=== PATIENT | female | born 1960 | race Caucasian/White ===

== ENCOUNTER 2018-10-12 09:06 | Emergency (ER) | payer BC ==
[2018-10-12 09:31] VITALS: BP 148/74
[2018-10-12] MEDS ORDERED: CHERRY SYRUP 10 ML UDC PO ONE (09:44)
[2018-10-12] MEDS ORDERED: IPRATROPIUM/ALBUTEROL 3 ML NEB INH STA (09:44)
[2018-10-12] MEDS ORDERED: DEXAMETHASONE 10 MG/ML VIAL PO STA (09:44)
--- NOTE | 2018-10-12 09:47 | ED Physician Documentation ---
PD HPI DYSPNEA - Stated complaint Stated Complaint: DIFFICULTY BREATHING/CONGESTION - Chief complaint Chief Complaint: General - History obtained from History obtained from: Patient, Family - History of Present Illness Timing - onset: How many weeks ago (1) Timing - onset during: Rest Timing - duration: Weeks (1) Timing - details: Gradual onset, Still present Inciting event(s): URI Improved by: Inhaler/neb, Steroids Worsened by: Exertion Associated symptoms: Cough, Wheezing, Chest pain / discomfort Similar symptoms before: Diagnosis (bronchitis) Recently seen: Clinic - Additional information Additional information: 58-year-old female has developed cough congestion and wheezing about 1 week ago she has been into see her doctor she started on some prednisone and Cefdinir and she continues to have wheezing. She is traveling here from [place] and did not bring her nebulizer machine with her. She feels that this would be a time when she would normally use her nebulizer machine when she is sick with bronchitis and she feels that she is not able to breathe deep enough to make her albuterol inhaler effective. She is under treatment for stage IV breast cancer with hormone blocking agent and shrinking of the tumor. Review of Systems Constitutional: denies: Fever Eyes: denies: Decreased vision Ears: denies: Ear pain Nose: reports: Rhinorrhea / runny nose, Congestion Throat: reports: Sore throat Cardiac: reports: Chest pain / pressure. 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: Hysterectomy Cardiovascular: AICD - Present Medications Home Medications: Ambulatory Orders Medication Instructions Recorded Confirmed Abemaciclib [Verzenio] 100 mg PO QPM 10/12/18 10/12/18 Abemaciclib [Verzenio] 150 mg PO DAILY 10/12/18 10/12/18 Albuterol 2.5 mg INH Q4H PRN #30 neb 10/12/18 Bepotastine Besilate [Bepreve] 1 drops EACHEYE DAILY 10/12/18 10/12/18 Cefdinir 300 mg PO Q12H 10/12/18 10/12/18 Codeine Phosphate/Guaifenesin 5 - 10 ml PO Q4HR PRN #200 ml 10/12/18 [Guaifen-Codeine 100-10 mg/5 ml] Estrogens,Esterified [Menest] 2.5 mg PO DAILY 10/12/18 10/12/18 Gabapentin 300 mg PO DAILY 10/12/18 10/12/18 Nebulizer [Aeroneb Go Nebulizer] 1 each MC Q4HR PRN #1 each 10/12/18 Sulfacetamide/Prednisolone Sp 2 drops EACHEYE DAILY 10/12/18 10/12/18 [Sulf-Pred 10-0.23% Eye Drops] - Allergies Allergies/Adverse Reactions: Allergies Allergy/AdvReac Type Severity Reaction Status Date / Time adhesive Allergy Unknown Verified 10/12/18 09:32 - Social History Does the pt smoke?: No Smoking Status: Former smoker Does the pt drink ETOH?: Yes Does the pt have substance abuse?: No PD ED PE NORMAL - Vitals Vital signs reviewed: Yes (hypertensive mild ) - General General: Alert and oriented X 3, No acute distress, Well developed/nourished - HEENT HEENT: Atraumatic, PERRL, EOMI, Pharynx benign, Dentition benign, Other (The left TM is inflamed mildly right is clear) - Neck Neck: Supple, no meningeal sign, No bony TTP - Cardiac Cardiac: RRR, No murmur - Respiratory Respiratory: No respiratory distress, Other (musical wheezes bilaterally ) - Abdomen Abdomen: Soft, Non tender - Back Back: No CVA TTP, No spinal TTP - Derm Derm: Normal color, Warm and dry, No rash - Extremities Extremities: No deformity, No edema - Neuro Neuro: Alert and oriented X 3, 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, No motor deficit, No sensory deficit, Normal speech Eye Opening: Spontaneous Motor: Obeys Commands Verbal: Oriented GCS Score: 15 - Psych Psych: Normal mood, Normal affect Results - Vitals Vitals: Vital Signs - 24 hr 10/12/18 10/12/18 10/12/18 09:24 09:54 10:30 Temperature 36.7 C Heart Rate 93 74 80 Respiratory 14 18 18 Rate Blood Pressure 148/74 H O2 Saturation 95 Oxygen O2 Source Room air PD MEDICAL DECISION MAKING - ED course Complexity details: reviewed results, re-evaluated patient, considered differential, d/w patient, d/w family ED course: 58 y/o female with asthma and URI has been put on steroid and antibiotic and continues to have soa and she does not have her regular nebulizer as she is travelling. She is administered a dose of decadron, a duoneb treatment and an albuterol treatment. She has some improvement. 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 Departure - Departure Disposition: Home, Self Care Clinical Impression: Asthmatic bronchitis with acute exacerbation Qualifiers: Asthma severity: moderate Asthma persistence: persistent Qualified Code(s): J45.41 - Moderate persistent asthma with (acute) exacerbation Condition: Stable Instructions: ED Bronchitis Asthmatic Follow-Up: Your, doctor [Other] Prescriptions: Codeine Phosphate/Guaifenesin [Guaifen-Codeine 100-10 mg/5 ml] 5 - 10 ml PO Q4HR PRN #200 ml PRN Reason: Cough Nebulizer [Aeroneb Go Nebulizer] 1 each MC Q4HR PRN #1 each PRN Reason: soa Albuterol 2.5 mg INH Q4H PRN #30 neb PRN Reason: Wheezing
[2018-10-12] MEDS ORDERED: BENZONATATE 100 MG CAPSULE PO STA (10:13)
[2018-10-12] MEDS ORDERED: ALBUTEROL NEB 2.5 MG/3 ML INH STA (10:13)
== END 2018-10-12 11:35 | disposition home or self-care (01) ==
LOC: ED 09:06
DX: J45.41 Moderate persistent asthma with (acute) exacerbation (principal); C50.919 Malignant neoplasm of unspecified site of unspecified female breast; I10 Essential (primary) hypertension; Z79.899 Other long term (current) drug therapy; Z87.891 Personal history of nicotine dependence
CPT/HCPCS: 94640; 99283; 99284; A9270